=== PATIENT | male | born 1930 | race Caucasian/White ===

== ENCOUNTER 2016-12-27 20:14 | Inpatient (IN) | payer OTHER ==
[~2016-12-27] VITALS: Ht 172.7 cm; Wt 92.8 kg
[2016-12-27 20:43] LABS: Basophils # (auto) 0 uL; Basophils % (auto) 0.1 % (0.0-2.0); CONDITION Y; Eosinophils # (auto) 0 uL; Hematocrit 43.7 % (41.0-53.0); Hemoglobin 14.9 g/dL (13.5-17.5); Lymphocytes # (auto) 0.5 uL; Lymphocytes % (auto) 3.2 % (10.0-50.0); Mean Corpuscular Hemoglobin 32.2 pg (28.0-32.0); Mean Corpuscular Hgb Conc. 34.1 g/dL (32.0-36.0); Mean Corpuscular Volume 94.3 fL (80.0-100.0); Mean Platelet Volume 8.8 fL (7.4-10.4); Monocytes # (auto) 1.1 uL; Monocytes % (auto) 6.9 % (0.0-12.0); Neutrophils # (auto) 14.7 uL; Neutrophils % (auto) 89.8 % (37.0-80.0); Platelet Count (auto) 306 10^3/uL (140-450); Red Cell Distribution Width 13.4 % (11.6-16.0); White Blood Cell 16.4 10^3/uL (4.4-10.8)
[2016-12-27 21:06] LABS: Albumin 3.2 g/dL (3.4-5.0); Alkaline Phosphatase 107 U/L (45-117); Anion Gap 10 (5-15); Aspartate Aminotransferase 20 U/L (15-37); BUN/Creatinine Ratio 16.8; Bilirubin, Total 1.1 mg/dL (0.2-1.0); Blood Urea Nitrogen 17 mg/dL (7-18); Calcium 8.1 mg/dL (8.5-10.1); Carbon Dioxide 23 mmol/L (21-32); Chloride 104 mmol/L (98-107); GFR African American 90 mL/min; GFR Non-African American 74 mL/min; Glucose 163 mg/dL (74-106); Sodium 137 mmol/L (136-145); Total Protein 7.2 g/dL (6.4-8.2)
[2016-12-27 21:45] LABS: INR 0.94 (0.9-1.15); Partial Thromboplastin Time 27.7 sec (22.64-33.71); Prothrombin Time 10.2 sec (9.37-12.3)
[2016-12-28] MEDS ORDERED: LACTULOSE 20Gm/30ML SOLN PO ONE (00:15)
[2016-12-28] MEDS ORDERED: SODIUM CHLORIDE 0.9% 1,000 ML IV ONE (00:15)
[2016-12-28] MEDS ORDERED: ONDANSETRON HCL 4 MG/2 ML VIAL IV ONE (00:15)
[2016-12-28] MEDS ORDERED: MAGNESIUM CITRATE SOLUTION 300 ML BTL PO ONE (00:15)
[2016-12-28] MEDS ORDERED: cefTRIAXone 1GM/50ML D5W 50 ML IV ONE (00:15)
[2016-12-28] MEDS ORDERED: MORPHINE SULF INJ 2 MG/ML SYRINGE 1ML IV ONE (00:15)
[2016-12-28] MEDS ORDERED: metroNIDAZOLE 500MG/100ML 100 ML IV ONE (00:15)
[2016-12-28] MEDS: SODIUM CHLORIDE 0.9% 1,000 ML IV SCH ×2 (03:37→06:48)
[2016-12-28] MEDS ORDERED: LACTULOSE 20Gm/30ML SOLN PO PRN (03:45)
[2016-12-28] MEDS ORDERED: MORPHINE SULF INJ 2 MG/ML SYRINGE 1ML IV PRN ×2 (03:45)
[2016-12-28] MEDS: FAMOTIDINE (10MG/ML) 2ML VL IV SCH ×2 (03:45→15:55)
[2016-12-28] MEDS ORDERED: NITROGLYCERIN 0.4 MG SL TAB SL PRN (03:45)
[2016-12-28 05:15] VITALS: BP 128/63
[2016-12-28] MEDS ORDERED: GABA-339 PO (06:33)
[2016-12-28] MEDS ORDERED: HYDR-4663 PO (06:33)
[2016-12-28] MEDS ORDERED: GABA-497 PO (06:33)
[2016-12-28] MEDS ORDERED: METO25TA5 PO (06:34)
[2016-12-28] MEDS: metroNIDAZOLE 500MG/100ML 100 ML IV SCH ×4 (06:48→23:11)
[2016-12-28 07:39] VITALS: BP 139/70
[2016-12-28 08:00] VITALS: BP 139/70
[2016-12-28] MEDS: cefTRIAXone 1GM/50ML D5W 50 ML IV SCH (08:31)
[2016-12-28] MEDS: METOPROLOL TARTRATE 50 MG TAB PO SCH ×2 (09:11→22:00)
[2016-12-28] MEDS: D5W/SOD CHL 0.45% 1,000 ML IV SCH ×2 (12:25→21:06)
[2016-12-28 14:56] VITALS: BP 127/70
[2016-12-28 20:00] VITALS: BP 104/54
[2016-12-28 21:51] VITALS: BP 104/54
[2016-12-28] MEDS: ATORVASTATIN 20 MG TAB PO SCH (23:11)
[2016-12-29] VITALS (7 sets, daily range): BP systolic 103–125; BP diastolic 44–74
[2016-12-29] MEDS: D5W/SOD CHL 0.45% 1,000 ML IV SCH ×3 (03:58→21:51)
[2016-12-29] MEDS: FAMOTIDINE (10MG/ML) 2ML VL IV SCH ×2 (03:58→17:54)
[2016-12-29] MEDS: metroNIDAZOLE 500MG/100ML 100 ML IV SCH ×4 (05:38→23:27)
[2016-12-29 05:45] LABS: Basophils # (auto) 0 uL; CONDITION Y; Eosinophils # (auto) 0 uL; Eosinophils % (auto) 0.1 % (0.0-7.0); Hematocrit 38.4 % (41.0-53.0); Lymphocytes # (auto) 0.7 uL; Lymphocytes % (auto) 4.9 % (10.0-50.0); Mean Corpuscular Hemoglobin 32.3 pg (28.0-32.0); Mean Corpuscular Hgb Conc. 33.9 g/dL (32.0-36.0); Mean Corpuscular Volume 95.2 fL (80.0-100.0); Mean Platelet Volume 9.2 fL (7.4-10.4); Monocytes # (auto) 1.2 uL; Monocytes % (auto) 8.6 % (0.0-12.0); Neutrophils % (auto) 86.4 % (37.0-80.0); Platelet Count (auto) 241 10^3/uL (140-450); Red Cell Distribution Width 13.6 % (11.6-16.0); White Blood Cell 13.9 10^3/uL (4.4-10.8)
[2016-12-29 05:56] LABS: INR 0.99 (0.9-1.15); Partial Thromboplastin Time 33.2 sec (22.64-33.71); Prothrombin Time 10.8 sec (9.37-12.3)
[2016-12-29 06:01] LABS: Albumin 2.4 g/dL (3.4-5.0); BUN/Creatinine Ratio 17.3; Calcium 7.3 mg/dL (8.5-10.1); Magnesium 2.2 mg/dL (1.6-2.6); Potassium 3.6 mmol/L (3.5-5.1); Total Protein 5.8 g/dL (6.4-8.2)
[2016-12-29] MEDS: METOPROLOL TARTRATE 50 MG TAB PO SCH ×2 (10:00→21:51)
[2016-12-29] MEDS: cefTRIAXone 1GM/50ML D5W 50 ML IV SCH (11:13)
[2016-12-29] MEDS: ATORVASTATIN 20 MG TAB PO SCH (21:51)
[2016-12-30] VITALS (7 sets, daily range): BP systolic 104–130; BP diastolic 16–84
[2016-12-30] MEDS: D5W/SOD CHL 0.45% 1,000 ML IV SCH ×2 (05:31→16:21)
[2016-12-30] MEDS: FAMOTIDINE (10MG/ML) 2ML VL IV SCH ×2 (05:31→15:29)
[2016-12-30] MEDS: metroNIDAZOLE 500MG/100ML 100 ML IV SCH ×3 (06:08→17:14)
[2016-12-30] MEDS: cefTRIAXone 1GM/50ML D5W 50 ML IV SCH (08:57)
[2016-12-30] MEDS: METOPROLOL TARTRATE 50 MG TAB PO SCH ×2 (10:00→22:00)
[2016-12-30] MEDS: ATORVASTATIN 20 MG TAB PO SCH (22:10)
[2016-12-31] MEDS: metroNIDAZOLE 500MG/100ML 100 ML IV SCH ×4 (00:01→18:09)
[2016-12-31] MEDS: FAMOTIDINE (10MG/ML) 2ML VL IV SCH ×2 (03:26→15:40)
[2016-12-31] MEDS: D5W/SOD CHL 0.45% 1,000 ML IV SCH ×3 (03:26→14:50)
[2016-12-31 04:56] VITALS: BP 108/64
[2016-12-31 05:53] LABS: Basophils # (auto) 0 uL; CONDITION Y; Eosinophils # (auto) 0.1 uL; Eosinophils % (auto) 0.8 % (0.0-7.0); Hematocrit 36.7 % (41.0-53.0); Hemoglobin 12.5 g/dL (13.5-17.5); Lymphocytes # (auto) 0.8 uL; Lymphocytes % (auto) 8.6 % (10.0-50.0); Mean Corpuscular Hemoglobin 32.3 pg (28.0-32.0); Mean Corpuscular Hgb Conc. 34.1 g/dL (32.0-36.0); Mean Corpuscular Volume 94.8 fL (80.0-100.0); Mean Platelet Volume 8.9 fL (7.4-10.4); Monocytes # (auto) 0.9 uL; Monocytes % (auto) 9.5 % (0.0-12.0); Neutrophils # (auto) 7.4 uL; Neutrophils % (auto) 81.1 % (37.0-80.0); Platelet Count (auto) 262 10^3/uL (140-450); Red Cell Distribution Width 13.6 % (11.6-16.0); White Blood Cell 9.2 10^3/uL (4.4-10.8)
[2016-12-31 06:04] LABS: Albumin 2.2 g/dL (3.4-5.0); BUN/Creatinine Ratio 11.6; Bilirubin, Total 0.6 mg/dL (0.2-1.0); Calcium 7.4 mg/dL (8.5-10.1); Magnesium 2.3 mg/dL (1.6-2.6); Potassium 3.1 mmol/L (3.5-5.1); Total Protein 5.7 g/dL (6.4-8.2)
[2016-12-31 06:09] LABS: INR 1.06 (0.9-1.15); Partial Thromboplastin Time 31.6 sec (22.64-33.71); Prothrombin Time 11.6 sec (9.37-12.3)
[2016-12-31] MEDS ORDERED: POTASSIUM CHL 20 Meq TABLET PO ONE (07:15)
[2016-12-31 07:36] VITALS: BP 102/58
[2016-12-31 08:21] VITALS: BP 102/58
[2016-12-31] MEDS ORDERED: fentaNYL CITRATE 100 MCG/2 ML VL ONE (09:03)
[2016-12-31] MEDS ORDERED: NEOSTIGMINE 1 MG/ML INJ (10mg/10ML VIAL) ONE (09:03)
[2016-12-31] MEDS ORDERED: MEPERIDINE HCL (50 MG/ML) 1 ML VIAL ONE (09:03)
[2016-12-31] MEDS ORDERED: KETOROLAC TROMETH 60MG/2ML VIAL IM ONE (09:03)
[2016-12-31] MEDS ORDERED: MIDAZOLAM HCL 1MG/1ML-2 ML VIAL ONE (09:03)
[2016-12-31] MEDS ORDERED: GLYCOPYRROLATE 0.2 MG/ML 1ML VIAL ONE (09:03)
[2016-12-31] MEDS ORDERED: ROCURONIUM 10MG/ML 10ML VIAL IV ONE (09:03)
[2016-12-31] MEDS ORDERED: ONDANSETRON HCL 4 MG/2 ML VIAL ONE (09:03)
[2016-12-31] MEDS ORDERED: METOCLOPRAMIDE HCL 5MG/ml INJ 2ml VIAL ONE (09:03)
[2016-12-31] MEDS ORDERED: SODIUM CHLORIDE LOCK 10 ML ONE (09:03)
[2016-12-31] MEDS: cefTRIAXone 1GM/50ML D5W 50 ML IV SCH (09:34)
[2016-12-31] MEDS: METOPROLOL TARTRATE 50 MG TAB PO SCH ×2 (09:35→22:00)
[2016-12-31] MEDS ORDERED: POVIDONE IODINE 10 % TOPICAL OINT 30GM TOP ONE (12:55)
[2016-12-31] MEDS ORDERED: HYDROmorphone HCL 2 MG/ML VL IV PRN (13:15)
[2016-12-31] MEDS ORDERED: KETOROLAC TROMETH 30 MG/ML 1ML VIAL IV ONE (13:15)
[2016-12-31] MEDS ORDERED: METOCLOPRAMIDE HCL 5MG/ml INJ 2ml VIAL IV ONE (13:15)
[2016-12-31] MEDS: ONDANSETRON HCL 4 MG/2 ML VIAL IV PRN (14:19)
[2016-12-31 16:37] VITALS: BP 134/69
[2016-12-31 20:00] VITALS: BP 144/76
[2016-12-31 22:00] VITALS: BP 144/76
[2017-01-01] MEDS: metroNIDAZOLE 500MG/100ML 100 ML IV SCH ×4 (00:48→17:42)
[2017-01-01] MEDS: D5W/SOD CHL 0.45% 1,000 ML IV SCH ×4 (00:49→17:42)
[2017-01-01] MEDS: ATORVASTATIN 20 MG TAB PO SCH ×3 (00:49→22:14)
[2017-01-01] MEDS: ONDANSETRON HCL 4 MG/2 ML VIAL IV PRN (03:18)
[2017-01-01] MEDS: FAMOTIDINE (10MG/ML) 2ML VL IV SCH ×2 (03:45→15:26)
[2017-01-01 05:00] VITALS: BP 114/65
[2017-01-01 06:14] LABS: Basophils # (auto) 0 uL; CONDITION Y; Eosinophils # (auto) 0 uL; Hematocrit 36.9 % (41.0-53.0); Hemoglobin 12.4 g/dL (13.5-17.5); Lymphocytes # (auto) 0.4 uL; Lymphocytes % (auto) 4.2 % (10.0-50.0); Mean Corpuscular Hgb Conc. 33.7 g/dL (32.0-36.0); Mean Corpuscular Volume 94.9 fL (80.0-100.0); Mean Platelet Volume 8.8 fL (7.4-10.4); Monocytes # (auto) 0.4 uL; Monocytes % (auto) 4.7 % (0.0-12.0); Neutrophils # (auto) 7.7 uL; Neutrophils % (auto) 91.1 % (37.0-80.0); Platelet Count (auto) 292 10^3/uL (140-450); Red Cell Distribution Width 13.6 % (11.6-16.0); White Blood Cell 8.4 10^3/uL (4.4-10.8)
[2017-01-01 06:30] LABS: Albumin 2.3 g/dL (3.4-5.0); BUN/Creatinine Ratio 14.6; Calcium 7.7 mg/dL (8.5-10.1); Magnesium 2.4 mg/dL (1.6-2.6); Potassium 3.9 mmol/L (3.5-5.1)
[2017-01-01 06:33] LABS: Bilirubin, Total 0.4 mg/dL (0.2-1.0); Total Protein 5.7 g/dL (6.4-8.2)
[2017-01-01] MEDS ORDERED: PROMETHAZINE HCL 25 MG/ML 1ML IV PRN (07:30)
[2017-01-01 09:00] VITALS: BP 103/56
[2017-01-01] MEDS: METOPROLOL TARTRATE 50 MG TAB PO SCH ×3 (09:18→22:15)
[2017-01-01] MEDS: cefTRIAXone 1GM/50ML D5W 50 ML IV SCH (09:18)
[2017-01-01 17:00] VITALS: BP 116/67
[2017-01-01 20:00] VITALS: BP 122/69
[2017-01-01 22:00] VITALS: BP 122/69
[2017-01-02] MEDS: metroNIDAZOLE 500MG/100ML 100 ML IV SCH ×2 (00:17→05:28)
[2017-01-02] MEDS: D5W/SOD CHL 0.45% 1,000 ML IV SCH (02:10)
[2017-01-02] MEDS: FAMOTIDINE (10MG/ML) 2ML VL IV SCH (04:54)
[2017-01-02 05:00] VITALS: BP 114/61
[2017-01-02 07:54] VITALS: BP 144/78
[2017-01-02 09:00] VITALS: BP 144/78
[2017-01-02] MEDS: cefTRIAXone 1GM/50ML D5W 50 ML IV SCH (09:12)
[2017-01-02] MEDS: METOPROLOL TARTRATE 50 MG TAB PO SCH (09:12)
[2017-01-02 10:11] VITALS: BP 138/80
[2017-01-02 10:24] VITALS: BP 138/80
== END 2017-01-02 13:04 | disposition home or self-care (01) | DRG 419 ==
LOC: EDBD 20:14 → ER 20:18 → TELE 20:19 → TELE-EAST 12-28 05:57
PROVIDERS: ADMIT Family Medicine; ATTEND Internal Medicine Geriatric Medicine
PROC: 0FT44ZZ Resection of Gallbladder, Percutaneous Endoscopic Approach (ICD-10-PCS; principal; 2016-12-31 11:40)
DX: K80.00 Calculus of gallbladder with acute cholecystitis without obstruction (principal); E66.01 Morbid (severe) obesity due to excess calories; Z95.1 Presence of aortocoronary bypass graft; I25.10 Atherosclerotic heart disease of native coronary artery without angina pectoris; K57.30 Diverticulosis of large intestine without perforation or abscess without bleeding; I70.0 Atherosclerosis of aorta; K44.9 Diaphragmatic hernia without obstruction or gangrene; N28.1 Cyst of kidney, acquired; N18.2 Chronic kidney disease, stage 2 (mild); I12.9 Hypertensive chronic kidney disease with stage 1 through stage 4 chronic kidney disease, or unspecified chronic kidney disease; K59.00 Constipation, unspecified; G89.29 Other chronic pain; M43.16 Spondylolisthesis, lumbar region; N40.0 Benign prostatic hyperplasia without lower urinary tract symptoms; Z82.49 Family history of ischemic heart disease and other diseases of the circulatory system; I25.2 Old myocardial infarction; Z95.5 Presence of coronary angioplasty implant and graft; Z68.31 Body mass index [BMI] 31.0-31.9, adult
CPT/HCPCS: 36415; 71010; 74176; 76705; 76775; 80053; 80061; 83690; 83735; 84484; 85025; 85610; 85730; 86850; 86900; 86901; 88304; 93005; 93306; 96365; 96368; 96375; J0696; J1885; J2250; J2405; J3490